=== PATIENT | female | born 2000 | race Caucasian/White ===

== ENCOUNTER 2020-09-02 14:46 | Emergency (ER) | payer OTHER ==
[~2020-09-02] VITALS: Ht 157.5 cm; Wt 49.9 kg
[2020-09-02] MEDS ORDERED: FOLIC ACID1 MG (15:23)
== END 2020-09-02 20:04 | disposition home or self-care (01) ==
LOC: ER 14:46
DX: O21.8 Other vomiting complicating pregnancy (principal); Z34.01 Encounter for supervision of normal first pregnancy, first trimester; Z11.52 Encounter for screening for COVID-19

== ENCOUNTER 2021-02-05 21:25 | Outpatient (CLI) | payer OTHER ==
[~2021-02-05 21:25] MED LIST: FOLIC ACID1 MG
== END 2021-02-06 17:23 | disposition home or self-care (01) ==
LOC: OBS/DEL 21:25
PROVIDERS: ATTEND Obstetrics & Gynecology
DX: O26.893 Other specified pregnancy related conditions, third trimester (principal); R10.2 Pelvic and perineal pain; Z3A.32 32 weeks gestation of pregnancy

== ENCOUNTER 2021-03-26 09:55 | Inpatient (IN) | payer OTHER ==
[~2021-03-26] VITALS: Ht 157.5 cm; Wt 59.4 kg
== END 2021-03-28 10:53 | disposition home or self-care (01) | DRG 807 ==
LOC: LDR 09:55 → OB/GYN 20:40
PROVIDERS: ADMIT Obstetrics & Gynecology; ATTEND Obstetrics & Gynecology
PROC: 10E0XZZ Delivery of Products of Conception, External Approach (ICD-10-PCS; principal; 2021-03-26)
PROC: 0KQM0ZZ Repair Perineum Muscle, Open Approach (ICD-10-PCS; 2021-03-26)
PROC: 4A1HXCZ Monitoring of Products of Conception, Cardiac Rate, External Approach (ICD-10-PCS; 2021-03-26)
DX: O70.1 Second degree perineal laceration during delivery (principal); Z37.0 Single live birth; Z20.822 Contact with and (suspected) exposure to COVID-19; Z3A.39 39 weeks gestation of pregnancy

== ENCOUNTER 2022-07-26 19:50 | Outpatient (CLI) | payer OTHER | END 2022-07-26 23:53 | disposition home or self-care (01) | LOC: OBS/DEL 19:50 | PROVIDERS: ATTEND Obstetrics & Gynecology | DX: O36.8330 Maternal care for abnormalities of the fetal heart rate or rhythm, third trimester, not applicable or unspecified (principal); Z3A.35 35 weeks gestation of pregnancy; Z20.822 Contact with and (suspected) exposure to COVID-19 ==

== ENCOUNTER 2022-08-17 07:23 | Inpatient (IN) | payer OTHER ==
[~2022-08-17] VITALS: Ht 157.5 cm; Wt 65.3 kg
== END 2022-08-19 13:56 | disposition home or self-care (01) | DRG 807 ==
LOC: LDR 07:23 → OB/GYN 07:23
PROVIDERS: ADMIT Obstetrics & Gynecology; ATTEND Obstetrics & Gynecology
PROC: 10E0XZZ Delivery of Products of Conception, External Approach (ICD-10-PCS; principal; 2022-08-17)
PROC: 0HQ9XZZ Repair Perineum Skin, External Approach (ICD-10-PCS; 2022-08-17)
PROC: 4A1HXCZ Monitoring of Products of Conception, Cardiac Rate, External Approach (ICD-10-PCS; 2022-08-17)
DX: O70.0 First degree perineal laceration during delivery (principal); Z37.0 Single live birth; O99.824 Streptococcus B carrier state complicating childbirth; Z3A.39 39 weeks gestation of pregnancy; Z20.822 Contact with and (suspected) exposure to COVID-19